=== PATIENT | female | born 1940 | race Caucasian/White ===

== ENCOUNTER 2016-03-31 15:01 | Outpatient (CLI) | payer OTHER, BC | END 2016-03-31 18:07 | disposition home or self-care (01) | LOC: SRD 15:01 | PROVIDERS: ATTEND Family Medicine | DX: Z01.818 Encounter for other preprocedural examination (principal); R05 Cough; I51.7 Cardiomegaly; M47.899 Other spondylosis, site unspecified | CPT/HCPCS: 71020-TC ==

== ENCOUNTER 2016-06-07 15:27 | Outpatient (CLI) | payer OTHER | END 2016-06-07 19:38 | disposition home or self-care (01) | LOC: SRD 15:27 | PROVIDERS: ATTEND Family Medicine | DX: S89.91XA Unspecified injury of right lower leg, initial encounter (principal); Y93.89 Activity, other specified; Y92.89 Other specified places as the place of occurrence of the external cause; Y99.8 Other external cause status; M79.89 Other specified soft tissue disorders; M85.861 Other specified disorders of bone density and structure, right lower leg; M11.261 Other chondrocalcinosis, right knee; M17.11 Unilateral primary osteoarthritis, right knee | CPT/HCPCS: 73564 ==